=== PATIENT | female | born 1995 | race Caucasian/White ===

== ENCOUNTER 2017-04-18 18:45 | Outpatient (CLI) | payer OTHER ==
[~2017-04-18] VITALS: Ht 170.2 cm; Wt 88.0 kg
[~2017-04-18 18:45] MED LIST: ACET50TA PO; DOCU10CA PO; IBUP80TA PO; PRENTAB31 PO
[2017-04-18 18:57] VITALS: BP 117/69
[2017-04-18] MEDS ORDERED: TUMS500C PO (18:57)
[2017-04-20] MEDS ORDERED: FLUCONAZOLE 50MG TABLET PO ONE (16:00)
[2017-06-16] MEDS ORDERED: COLA100C5 PO (08:06)
[2017-06-16] MEDS ORDERED: TYLE325T5 PO (08:06)
[2017-06-16] MEDS ORDERED: MOTR200T44 PO (08:06)
== END 2017-04-18 21:00 | disposition home or self-care (01) ==
LOC: M LDO 18:45
PROVIDERS: ATTEND Student in an Organized Health Care Education/Training Program
DX: O47.03 False labor before 37 completed weeks of gestation, third trimester (principal); Z3A.31 31 weeks gestation of pregnancy; Z88.1 Allergy status to other antibiotic agents; Z88.0 Allergy status to penicillin; Z88.2 Allergy status to sulfonamides; Z91.018 Allergy to other foods

== ENCOUNTER 2017-04-20 13:51 | Outpatient (CLI) | payer OTHER ==
[~2017-04-20] VITALS: Ht 170.2 cm; Wt 86.0 kg
[~2017-04-20 13:51] MED LIST changes: +TUMS500C PO
[2017-04-20] MEDS ORDERED: ZOLO50TA PO (14:06)
[2017-04-20 14:18] VITALS: BP 117/68
[2017-04-20 15:28] VITALS: BP 103/65
[2017-04-20] MEDS ORDERED: FLUCONAZOLE 50MG TABLET PO ONE (17:00)
[2017-06-16] MEDS ORDERED: TYLE325T5 PO (08:06)
[2017-06-16] MEDS ORDERED: COLA100C5 PO (08:06)
[2017-06-16] MEDS ORDERED: MOTR200T44 PO (08:06)
== END 2017-04-20 15:40 | disposition home or self-care (01) ==
LOC: M LDO 13:51
PROVIDERS: ATTEND Obstetrics & Gynecology
DX: O26.893 Other specified pregnancy related conditions, third trimester (principal); Z3A.32 32 weeks gestation of pregnancy; B37.3 Candidiasis of vulva and vagina; Z88.1 Allergy status to other antibiotic agents; Z88.0 Allergy status to penicillin; Z88.2 Allergy status to sulfonamides; Z91.018 Allergy to other foods

== ENCOUNTER 2017-06-01 06:13 | Outpatient (CLI) | payer OTHER ==
[~2017-06-01] VITALS: Ht 170.2 cm; Wt 90.9 kg
[~2017-06-01 06:13] MED LIST changes: +ZOLO50TA PO
[2017-06-01 06:42] VITALS: BP 117/72
[2017-06-01 08:03] VITALS: BP 118/64
--- NOTE | 2017-06-01 08:37 | HPE ---
DATE OF ADMISSION: 06/01/2017 21-year-old, 3, para 2, last menstrual period (LMP) 09/07/2016, estimated date of confinement (EDC) 06/14/2017, at 38 and 1 weeks of gestation with the occasional contraction and nausea. Her risk factors, she is Rh negative and has excessive weight gain in the . Past history: December 2012, at 36 weeks, spontaneous vaginal delivery, male, 6 pounds 13 ounces. January 2010, at 39 weeks, spontaneous vaginal delivery, male, 8 pounds 3 ounces. Labs show O negative, HIV negative, hepatitis negative, RPR negative, rubella immune. Varicella immune. Pap normal. Urine negative. Gonorrhea and chlamydia negative. 1-hour glucose was 135. Her 3-hour GTT fasting 77, 1-hour 144, 2-hour 124, 3-hour 111, and she is GBS negative. On examination today, she has a category 1 strip. She has the occasional tightening or contractions. She is normocephalic, atraumatic. Neck full range of motion. Pupils equal and reactive to light. Distal pulses symmetric. No evidence of deep venous thrombosis (DVT), pulmonary embolism (PE) or superficial phlebitis. Lungs are clear bilaterally to bases. No wheezes or rhonchi. No costovertebral angle (CVA) tenderness. Abdomen is soft. Four quadrant bowel sounds are noted. Appropriate symphysis fundus height. Category 1 strip. Pelvic examination: No loss of fluid, posterior cervix thick, 1-2 cm, minus 4 station, vertex presenting. She has no rashes, lesions or pruritus. Has a nose ring. No arthralgia or myalgia. No complaints of cough, wheezes, shortness of breath or dyspnea on exertion. She has multiple allergies. No chest pain. Not bleeding. Neuro complete. No incontinency, urgency or frequency. No nausea, vomiting, diarrhea or constipation. No diabetic issues. Her gyne history is unremarkable. Past medical and surgical and family history noncontributory. She does not smoke, drink, abuse drugs. No domestic violence. She is to a soldier. Her blood pressure today is 118/64, respirations 20, pulse 90 and temperature 98.4. Urine is 1.010, pH 7, negative, negative, negative. Our plan of management that she has been here over an hour is to give her precautions. We talked about kick chart, premature rupture of membranes, bleeding, when to call the provider if unsure to contact prior to coming in. She was discharged undelivered. She has an appointment this afternoon with the clinic at 3 p.m. The patient was discharged undelivered.
[2017-06-16] MEDS ORDERED: MOTR200T44 PO (08:06)
[2017-06-16] MEDS ORDERED: COLA100C5 PO (08:06)
[2017-06-16] MEDS ORDERED: TYLE325T5 PO (08:06)
== END 2017-06-01 08:24 | disposition home or self-care (01) ==
LOC: M LDO 06:13
PROVIDERS: ATTEND Obstetrics & Gynecology
DX: O47.1 False labor at or after 37 completed weeks of gestation (principal); Z3A.38 38 weeks gestation of pregnancy; O36.0930 Maternal care for other rhesus isoimmunization, third trimester, not applicable or unspecified; Z88.1 Allergy status to other antibiotic agents; Z88.0 Allergy status to penicillin; Z88.2 Allergy status to sulfonamides; Z91.018 Allergy to other foods

== ENCOUNTER 2017-06-02 07:14 | Outpatient (CLI) | payer OTHER ==
[~2017-06-02] VITALS: Ht 170.2 cm; Wt 90.9 kg
[2017-06-02 07:39] VITALS: BP 107/65
[2017-06-16] MEDS ORDERED: COLA100C5 PO (08:06)
[2017-06-16] MEDS ORDERED: TYLE325T5 PO (08:06)
[2017-06-16] MEDS ORDERED: MOTR200T44 PO (08:06)
== END 2017-06-02 08:52 | disposition home or self-care (01) ==
LOC: M LDO 07:14
PROVIDERS: ATTEND Obstetrics & Gynecology
DX: O26.853 Spotting complicating pregnancy, third trimester (principal); Z3A.38 38 weeks gestation of pregnancy; Z88.1 Allergy status to other antibiotic agents; Z88.0 Allergy status to penicillin; Z88.2 Allergy status to sulfonamides; Z91.018 Allergy to other foods